=== PATIENT | male | born 2000 | race Two or more races ===

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

== ENCOUNTER 2019-04-04 17:12 | Emergency (ER) | payer OTHER ==
[2019-04-04 17:18] VITALS: BP 131/56; PULSE 93; TEMP 101.3; BMI 26.0
--- NOTE | 2019-04-04 17:23 | PDOC ---
History of Present Illness - General Chief Complaint: Sore Throat Stated Complaint: SORE THROAT Time Seen by Provider: 04/04/19 17:23 History Source: Patient - History of Present Illness Initial Comments: 04/04/19 18:21 Chief complaint: Sore throat fever Patient 18-year-old male with a history of asthma with 2 days of sore throat, worse on the right side, with right ear pain and fever. Patient has a history of strep, now recently but it feels similar. Patient has no cough or shortness of breath. Patient has been eating and drinking but is complaining of not little nausea. GENERAL/CONSTITUTIONAL:+ fever, weakness. dizziness HEAD, EYES, EARS, NOSE AND THROAT: No change in vision. No ear pain or discharge. +sore throat. CARDIOVASCULAR: No chest pain RESPIRATORY: No shortness of breath or cough GASTROINTESTINAL: No pain, nausea, vomiting, diarrhea or constipation GENITOURINARY: No dysuria MUSCULOSKELETAL: No neck or back pain SKIN: No rash NEUROLOGIC: No headache, vertigo, loss of consciousness, or loss of sensation. GENERAL: The patient is awake, alert, and fully oriented, in no acute distress. HEAD: Normal with no signs of trauma. EYES: Pupils equal, round and reactive to light, sclera anicteric, conjunctiva clear. ENT: pharynx: + erythema, no exudate, uvula midline' no signs of peritonsillar abscess NECK: supple CHEST: clear, nontender, rr ABD: soft, nontender BACK: no tenderness or signs of injury EXTREMITIES: Normal range of motion, no edema. NEUROLOGICAL: Normal speech, normal gait. SKIN: Warm, Dry Past History - Past Medical History Allergies/Adverse Reactions: Allergies Allergy/AdvReac Type Severity Reaction Status Date / Time shellfish derived Allergy Intermediate Difficulty Verified 04/04/19 17:18 Breathing amoxicillin [Amoxicillin] Allergy Mild Rash Verified 04/04/19 17:18 Penicillins Allergy Verified 04/04/19 17:18 Home Medications: Ambulatory Orders Pantoprazole Sodium [Protonix] 40 mg PO DAILY #30 tablet. 12/14/16 Sucralfate [Carafate -] 1 gm PO QID #30 tablet 12/14/16 Azithromycin [Zithromax -] 250 mg PO UTDICT #6 tab 04/04/19 Asthma: Yes COPD: No - Immunization History Immunization Up to Date: Yes - Psycho Social/Smoking Cessation Hx Smoking Status: No Smoking History: Never smoked Have you smoked in the past 12 months: No Number of Cigarettes Smoked Daily: 0 Hx Alcohol Use: No Drug/Substance Use Hx: No Substance Use Type: None *Physical Exam - Vital Signs Last Vital Signs Temp Pulse Resp BP Pulse Ox 101.3 F H 93 H 18 131/56 L 99 04/04/19 17:14 04/04/19 17:14 04/04/19 17:14 04/04/19 17:14 04/04/19 17:14 Medical Decision Making - Medical Decision Making 04/04/19 18:22 18-year-old male with history of asthma with 2 days of fever, sore throat, exam is consistent with strep pharyngitis. Patient has ear pain but there does not show gross otitis but patient will be treated. Patient did not take any antipyretics today. Will give Motrin. No signs of peritonsillar abscess. Patient is allergic to amoxicillin, will put on Zithromax which she has been on before without issue. Patient will continue supportive care Discussed issues, findings, results, applicable medications and treatments and follow-up. All these were understood and all questions were answered Discharge - Discharge Information Problems reviewed: Yes Clinical Impression/Diagnosis: Pharyngitis Qualifiers: Pharyngitis/tonsillitis etiology: streptococcus Qualified Code(s): J02.0 - Streptococcal pharyngitis Condition: Stable Disposition: HOME - Admission No - Additional Discharge Information Prescriptions: Azithromycin [Zithromax -] 250 mg PO UTDICT #6 tab - Follow up/Referral Referrals: Torsten Godwin MD [Primary Care Provider] - - Patient Discharge Instructions Patient Printed Discharge Instructions: DI for Pharyngitis/Tonsillopharyngitis -- Adult Additional Instructions: Drink 2-3 L of water daily Take Tylenol 650 mg every 4 hours or Motrin 600 mg every 6 hours for fever and pain Take Zithromax, every 12 hours for 10 days, do not stop it early even if you feel better Return to the nearest ER if short of breath, unable to swallow or feeling sicker Followup with your doctor in one to 2 days - Post Discharge Activity
[2019-04-04] MEDS ORDERED: IBUPROFEN 600 MG TABLET (FP) PO ONE ×2 (17:52→17:59)
[2019-04-04] MEDS ORDERED: ONDANSETRON *ODT* 4 MG TABLET SL ONE (17:55)
[2019-04-04] MEDS ORDERED: ONDANSETRON *ODT* 4 MG TABLET ONE (17:58)
== END 2019-04-04 18:06 | disposition home or self-care (01) ==
LOC: JERFT 17:12
DX: J02.0 Streptococcal pharyngitis (principal); B95.0 Streptococcus, group A, as the cause of diseases classified elsewhere
CPT/HCPCS: 99281-25; Q0162

== ENCOUNTER 2019-05-11 18:32 | Emergency (ER) | payer OTHER ==
[2019-05-11 18:53] VITALS: BP 125/45; PULSE 86; TEMP 98.4; BMI 26.0
--- NOTE | 2019-05-11 21:29 | PDOC ---
History of Present Illness - General Chief Complaint: Cold Symptoms Stated Complaint: FEVER Time Seen by Provider: 05/11/19 20:42 - History of Present Illness Initial Comments: 05/11/19 21:27 19-year-old male with flulike symptoms x2 days Past History - Past Medical History Allergies/Adverse Reactions: Allergies Allergy/AdvReac Type Severity Reaction Status Date / Time shellfish derived Allergy Intermediate Difficulty Verified 05/11/19 18:53 Breathing amoxicillin [Amoxicillin] Allergy Mild Rash Verified 05/11/19 18:53 Penicillins Allergy Verified 05/11/19 18:53 Home Medications: Ambulatory Orders Pantoprazole Sodium [Protonix] 40 mg PO DAILY #30 tablet. 12/14/16 Sucralfate [Carafate -] 1 gm PO QID #30 tablet 12/14/16 Azithromycin [Zithromax -] 250 mg PO UTDICT #6 tab 04/04/19 Asthma: Yes COPD: No - Immunization History Immunization Up to Date: Yes - Psycho Social/Smoking Cessation Hx Smoking Status: No Smoking History: Never smoked Have you smoked in the past 12 months: No Number of Cigarettes Smoked Daily: 0 Information on smoking cessation initiated: No Hx Alcohol Use: No Drug/Substance Use Hx: No Substance Use Type: None Review of Systems - Review of Systems Constitutional: Yes: Chills, Fever, Malaise, Night Sweats HEENTM: Yes: Nose Congestion, Throat Pain Respiratory: Yes: Cough *Physical Exam - Vital Signs Last Vital Signs Temp Pulse Resp BP Pulse Ox 98.4 F 86 20 125/45 L 97 05/11/19 18:49 05/11/19 18:49 05/11/19 18:49 05/11/19 18:49 05/11/19 18:49 - Physical Exam 05/11/19 21:28 GENERAL: The patient is awake, alert, and fully oriented, in no acute distress. HEAD: Normal with no signs of trauma. EYES: sclera anicteric, conjunctiva clear. ENT: Ears normal tympanic membranes normal oropharynx clear uvula midline NECK: Normal range of motion LUNGS: Breath sounds equal, clear to auscultation bilaterally. No wheezes, and no crackles. HEART: S1 and S2 without murmur, rub or gallop. ABDOMEN: Soft, nontender, normoactive bowel sounds. No guarding, no rebound. No masses. EXTREMITIES: Normal range of motion, no edema. No clubbing or cyanosis. No cords, erythema, or tenderness. NEUROLOGICAL: Cranial nerves II through XII grossly intact. PSYCH: Normal mood, normal affect. SKIN: Warm, Dry, normal turgor, no rashes or lesions noted. Medical Decision Making - Medical Decision Making 05/11/19 21:28 Supportive care for influenza 05/11/19 21:28 We will start Tamiflu Discharge - Discharge Information Problems reviewed: Yes Clinical Impression/Diagnosis: Influenza Condition: Stable Disposition: HOME - Admission No - Follow up/Referral Referrals: Torsten Godwin MD [Primary Care Provider] - - Patient Discharge Instructions Additional Instructions: Tylenol Motrin as directed for fever and body aches. Return to the emergency room for worsening symptoms and without fail follow-up with your primary care physician in 1 to 2 days for further evaluation and treatment options. Please take the Tamiflu as directed. - Post Discharge Activity Work/Back to School Note: Back to School
== END 2019-05-11 21:30 | disposition home or self-care (01) ==
LOC: JERFT 18:32
DX: J10.1 Influenza due to other identified influenza virus with other respiratory manifestations (principal); Z88.0 Allergy status to penicillin; Z91.013 Allergy to seafood
CPT/HCPCS: 87804; 99281-25

== ENCOUNTER 2020-07-14 13:42 | Emergency (ER) | payer OTHER ==
[2020-07-14 13:54] VITALS: BP 119/70; PULSE 72; TEMP 98.3; BMI 27.0
== END 2020-07-14 15:23 | disposition home or self-care (01) ==
LOC: JERFT 13:42
DX: M79.671 Pain in right foot (principal)
CPT/HCPCS: 73630-TC-RT-FY; 99283-25